=== PATIENT | female | born 1995 | race Caucasian/White ===

== ENCOUNTER → 2017-08-15 | Outpatient (CLI) | payer OTHER ==
[2017-08-15 17:07] LABS: Hepatitis A Ab IgM Negative; Hepatitis B Core IgM Negative
[2017-08-15 17:08] LABS: Hepatitis B Surface Antigen Negative (Negative)
== END | disposition home or self-care (01) ==
LOC: LAB 14:20
PROVIDERS: ATTEND Obstetrics & Gynecology
DX: Z20.2 Contact with and (suspected) exposure to infections with a predominantly sexual mode of transmission (principal)
CPT/HCPCS: 36415; 80074; 86703

== ENCOUNTER 2019-12-01 11:20 | Observation (INO) | payer OTHER ==
[2019-12-01] MEDS ORDERED: PREN-96 PO (11:37)
[2019-12-01 12:13] LABS: Basophils # (auto) 0 10 ^3/uL (0-0.2); Basophils % (auto) 0.3 % (0.0-2.0); Eosinophils # (auto) 0.5 10 ^3/uL (0-0.8); Eosinophils % (auto) 5.5 % (0.0-7.0); Hematocrit 32.8 % (36.0-46.0); Lymphocytes # (auto) 1.6 10 ^3/uL (0.4-5.4); Lymphocytes % (auto) 17.3 % (10.0-50.0); Mean Corpuscular Hemoglobin 32.4 pg (28.0-32.0); Mean Corpuscular Hgb Conc. 33.4 g/dL (32.0-36.0); Monocytes # (auto) 0.9 10 ^3/uL (0-1.3); Monocytes % (auto) 9.3 % (0.0-12.0); Neutrophils # (auto) 6.3 10 ^3/uL (1.6-8.6); Neutrophils % (auto) 67.6 % (37.0-80.0); Platelet Count (auto) 265 10^3/uL (140-450); Red Blood Cells 3.38 10^6/uL (4.0-5.20); Red Cell Distribution Width 12.8 % (11.8-14.3); White Blood Cell 9.3 10^3/uL (4.4-10.8)
[2019-12-01 12:16] LABS: Protein, Urine 68.4 mg/dL (0.0-11.9)
[2019-12-01 12:17] LABS: Urine Bacteria NONE SEEN /hpf (None Seen); Urine Blood Negative /uL (Negative); Urine Mucus FEW (None Seen); Urine Specific Gravity 1.018 (1.001-1.035); Urine Sperm PRESENT /hpf (None Seen); Urine WBC 10 /hpf (0 - 5)
[2019-12-01 12:31] LABS: INR 0.93 (0.9-1.15); Partial Thromboplastin Time 20.8 sec (23.0-31.2)
[2019-12-01 12:32] LABS: Albumin 2.6 g/dL (3.4-5.0); Calcium 8.4 mg/dL (8.5-10.1); Potassium 3.7 mmol/L (3.5-5.1)
[2019-12-01 12:41] LABS: BUN/Creatinine Ratio 12.2; Bilirubin, Total 0.2 mg/dL (0.2-1.0); Total Protein 7.1 g/dL (6.4-8.2); Uric Acid 3.9 mg/dL (2.6-6.0)
== END 2019-12-01 13:00 | disposition home or self-care (01) ==
LOC: LDRP 11:20
PROVIDERS: ADMIT Obstetrics & Gynecology; ATTEND Obstetrics & Gynecology
DX: O13.3 Gestational [pregnancy-induced] hypertension without significant proteinuria, third trimester (principal); Z3A.37 37 weeks gestation of pregnancy
CPT/HCPCS: 36415; 59025; 80053; 81001; 81002; 82570; 84156; 84550; 85025; 85610; 85730; G0378

== ENCOUNTER 2019-12-03 10:11 | Observation (INO) | payer OTHER ==
[~2019-12-03 10:11] MED LIST: PREN-96 PO
[2019-12-03 21:01] LABS: Protein, Urine 5.4 mg/dL (0.0-11.9)
[2019-12-03 21:12] LABS: 24 Hr. Total Protein, Urine 116.1 mg/24 Hr (<149.1)
== END 2019-12-03 12:10 | disposition home or self-care (01) ==
LOC: LDRP 10:11
PROVIDERS: ADMIT Specialist; ATTEND Specialist
DX: O13.3 Gestational [pregnancy-induced] hypertension without significant proteinuria, third trimester (principal)
CPT/HCPCS: 59025; 76818; 81002; 84156; G0378

== ENCOUNTER 2019-12-07 09:39 | Observation (INO) | payer OTHER | END 2019-12-07 10:45 | disposition home or self-care (01) | LOC: LDRP 09:39 | PROVIDERS: ADMIT Obstetrics & Gynecology; ATTEND Obstetrics & Gynecology | DX: O12.13 Gestational proteinuria, third trimester (principal); Z3A.38 38 weeks gestation of pregnancy | CPT/HCPCS: 59025; 76818; 81002; G0378 ==

== ENCOUNTER 2019-12-14 09:11 | Observation (INO) | payer OTHER | END 2019-12-14 10:35 | disposition home or self-care (01) | LOC: LDRP 09:11 | PROVIDERS: ADMIT Obstetrics & Gynecology; ATTEND Obstetrics & Gynecology | DX: O13.3 Gestational [pregnancy-induced] hypertension without significant proteinuria, third trimester (principal); Z3A.39 39 weeks gestation of pregnancy | CPT/HCPCS: 59025; 76818; 81002; G0378 ==

== ENCOUNTER 2019-12-20 14:02 | Observation (INO) | payer OTHER ==
[2019-12-20 15:15] LABS: Basophils # (auto) 0 10 ^3/uL (0-0.2); Basophils % (auto) 0.5 % (0.0-2.0); Eosinophils # (auto) 0.4 10 ^3/uL (0-0.8); Eosinophils % (auto) 4.3 % (0.0-7.0); Hematocrit 32.1 % (36.0-46.0); Hemoglobin 10.9 g/dL (12.2-16.2); Lymphocytes # (auto) 1.9 10 ^3/uL (0.4-5.4); Lymphocytes % (auto) 21.3 % (10.0-50.0); Mean Corpuscular Hemoglobin 32.2 pg (28.0-32.0); Mean Corpuscular Hgb Conc. 33.8 g/dL (32.0-36.0); Mean Corpuscular Volume 95.3 fL (80.0-100.0); Monocytes # (auto) 0.8 10 ^3/uL (0-1.3); Monocytes % (auto) 9.4 % (0.0-12.0); Neutrophils # (auto) 5.6 10 ^3/uL (1.6-8.6); Neutrophils % (auto) 64.5 % (37.0-80.0); Nucleated Red Blood Cells % 0.1 %; Platelet Count (auto) 253 10^3/uL (140-450); Red Blood Cells 3.37 10^6/uL (4.0-5.20); White Blood Cell 8.7 10^3/uL (4.4-10.8)
[2019-12-20 15:30] LABS: Albumin 2.9 g/dL (3.4-5.0); Calcium 8.4 mg/dL (8.5-10.1); Potassium 3.7 mmol/L (3.5-5.1)
[2019-12-20 15:32] LABS: INR 0.92 (0.9-1.15); Partial Thromboplastin Time 21.9 sec (23.0-31.2)
[2019-12-20 15:35] LABS: BUN/Creatinine Ratio 16.3; Bilirubin, Total 0.2 mg/dL (0.2-1.0); Total Protein 7.1 g/dL (6.4-8.2); Uric Acid 3.4 mg/dL (2.6-6.0)
[2019-12-20 16:09] LABS: Urine Bacteria FEW /hpf (None Seen); Urine Blood Negative /uL (Negative); Urine Specific Gravity 1.009 (1.001-1.035); Urine WBC 22 /hpf (0 - 5)
== END 2019-12-20 16:00 | disposition home or self-care (01) ==
LOC: LDRP 14:02
PROVIDERS: ADMIT Obstetrics & Gynecology; ATTEND Obstetrics & Gynecology
DX: O13.3 Gestational [pregnancy-induced] hypertension without significant proteinuria, third trimester (principal); O14.93 Unspecified pre-eclampsia, third trimester; Z3A.39 39 weeks gestation of pregnancy
CPT/HCPCS: 36415; 59025; 76818; 80053; 81001; 81002; 84550; 85025; 85379; 85610; 85730; G0378

== ENCOUNTER 2019-12-22 08:15 | Observation (INO) | payer OTHER ==
[2019-12-22 09:00] LABS: Protein, Urine 47.7 mg/dL (0.0-11.9)
[2019-12-22 10:06] LABS: 24 Hr. Total Protein, Urine 715.5 mg/24 Hr (<149.1)
== END 2019-12-22 10:50 | disposition home or self-care (01) ==
LOC: LDRP 08:15
PROVIDERS: ADMIT Obstetrics & Gynecology; ATTEND Obstetrics & Gynecology
DX: O13.3 Gestational [pregnancy-induced] hypertension without significant proteinuria, third trimester (principal); O14.93 Unspecified pre-eclampsia, third trimester; O48.0 Post-term pregnancy; Z3A.40 40 weeks gestation of pregnancy
CPT/HCPCS: 59025; 76818; 81002; 84156; G0378

== ENCOUNTER 2019-12-22 13:55 | Inpatient (IN) | payer OTHER ==
[~2019-12-22] VITALS: Ht 160 cm; Wt 63.5 kg
[2019-12-22] MEDS ORDERED: LIDOCAINE 2%HCL (LOCAL ANESTH.) INJ 20ML MDV ID ONE (14:45)
[2019-12-22] MEDS ORDERED: WITCH HAZEL-GLYCERIN PAD TOP PRN (14:45)
[2019-12-22] MEDS ORDERED: LACT. RINGERS/OXYTOCIN 20UNITS 1,000 ML IV SCH (14:45)
[2019-12-22] MEDS ORDERED: PHISODERM TOP SOLN 240ML BTL TOP PRN (14:45)
[2019-12-22 15:27] LABS: Basophils # (auto) 0 10 ^3/uL (0-0.2); Basophils % (auto) 0.3 % (0.0-2.0); Eosinophils # (auto) 0.4 10 ^3/uL (0-0.8); Eosinophils % (auto) 3.7 % (0.0-7.0); Hematocrit 31.6 % (36.0-46.0); Hemoglobin 10.7 g/dL (12.2-16.2); Lymphocytes # (auto) 1.8 10 ^3/uL (0.4-5.4); Lymphocytes % (auto) 17.9 % (10.0-50.0); Mean Corpuscular Hemoglobin 32.4 pg (28.0-32.0); Mean Corpuscular Volume 95.1 fL (80.0-100.0); Monocytes # (auto) 0.9 10 ^3/uL (0-1.3); Monocytes % (auto) 8.6 % (0.0-12.0); Neutrophils % (auto) 69.5 % (37.0-80.0); Nucleated Red Blood Cells % 0.1 %; Platelet Count (auto) 246 10^3/uL (140-450); Red Blood Cells 3.32 10^6/uL (4.0-5.20); Red Cell Distribution Width 12.9 % (11.8-14.3); White Blood Cell 10.1 10^3/uL (4.4-10.8)
[2019-12-22] MEDS: miSOPROStol 50 MCG per PRE-CUT 1/2 TAB PO PRN ×2 (15:32→19:50)
[2019-12-22 15:34] LABS: Urine Bacteria NONE SEEN /hpf (None Seen); Urine Blood TRACE /uL (Negative); Urine Specific Gravity 1.013 (1.001-1.035); Urine WBC 11 /hpf (0 - 5)
[2019-12-22 15:46] LABS: Alcohol, Urine < 3.0 mg/dL (0-10); Amphetamine Screen, Urine NEGATIVE (NEGATIVE); Barbiturate Scree,Urine NEGATIVE (NEGATIVE); Benzodiazephine Screen, Urine NEGATIVE (NEGATIVE); Cannabinoid Screen, Urine NEGATIVE (NEGATIVE); Cocaine Screen, Urine NEGATIVE (NEGATIVE); Opiate Scree,Urine NEGATIVE (NEGATIVE); Phencyclidine Screen, Urine NEGATIVE (NEGATIVE)
[2019-12-22 15:47] LABS: Potassium 3.6 mmol/L (3.5-5.1)
[2019-12-22 15:52] LABS: INR 0.91 (0.9-1.15); Partial Thromboplastin Time 21.5 sec (23.0-31.2)
[2019-12-22 15:54] LABS: Albumin 2.9 g/dL (3.4-5.0); BUN/Creatinine Ratio 11.1; Bilirubin, Total 0.2 mg/dL (0.2-1.0); Calcium 8.6 mg/dL (8.5-10.1); Uric Acid 4.7 mg/dL (2.6-6.0)
[2019-12-23] MEDS: LACTATED RINGER'S 1,000 ML IV SCH ×2 (00:07→10:36)
[2019-12-23] MEDS ORDERED: TERBUTALINE SULFATE 1 MG/ML 1ML VIAL SC ONE (00:15)
[2019-12-23] MEDS ORDERED: LACT. RINGERS/OXYTOCIN 20UNITS 1,000 ML IV ONE ×2 (00:15→15:00)
[2019-12-23] MEDS ORDERED: BUTORPHANOL TARTRATE 2 MG/1 ML VIAL IV PRN (00:30)
[2019-12-23] MEDS ORDERED: DERMOPLAST 60ML BOTTLE TOP PRN (00:30)
[2019-12-23] MEDS ORDERED: PROMETHAZINE HCL 25 MG/ML 1ML IV PRN (00:30)
[2019-12-23] MEDS ORDERED: fentaNYL CITRATE 100 MCG/2 ML VL IV ONE (04:15)
[2019-12-23] MEDS ORDERED: NALOXONE HCL 0.4 MG/ML VIAL IV ONE (04:15)
[2019-12-23] MEDS ORDERED: ROPIVACAINE HCL 100 ML EPI SCH ×2 (04:15→06:30)
[2019-12-23] MEDS ORDERED: LACTATED RINGER'S 1,000 ML IV ONE (04:15)
[2019-12-23] MEDS ORDERED: LIDOCAINE HCL 2 %PF INJ 10ML AMP IJ ONE (04:15)
[2019-12-23] MEDS ORDERED: ePHEDrine SULFATE 50 MG/ML AMP IV ONE (04:15)
[2019-12-23 05:07] LABS: RPR Non Reactive (Non Reactive)
[2019-12-23] MEDS ORDERED: ACETAMINOPHEN 325 MG TAB PO ONE (10:30)
[2019-12-23] MEDS: ceFAZolin 1GM/50ML 50 ML IV SCH ×2 (10:33→22:27)
--- NOTE | 2019-12-23 13:55 | NUR ---
Ambulation: Patient OOB with standby assistance by RN. Patient ambulated to bathroom with steady gait. Patient able to void 800ml without difficulty. Pericare teaching provided with returned demonstration by patient. Clean gown provided and bed linen changed. Patient felt lightheaded and dizzy, pt eased to floor after standing. Patient then assisted to wheelchair and into bed, LR bolus started, VSS.
[2019-12-23] MEDS ORDERED: AMMONIA 0.33 ML INHALANT IN ONE (13:56)
[2019-12-23 14:12] VITALS: BP 121/69
[2019-12-23] MEDS: IBUPROFEN 600 MG TAB PO PRN ×2 (15:20→18:41)
[2019-12-23] MEDS ORDERED: LACT. RINGERS/OXYTOCIN 20UNITS 1,000 ML IV SCH (16:00)
--- NOTE | 2019-12-23 16:00 | NUR ---
JERILYNAR received from TIM Rivera.
[2019-12-23 19:00] VITALS: BP 110/57
[2019-12-23] MEDS: ACETAMINOPHEN 325 MG TAB PO PRN (22:26)
[2019-12-23 23:00] VITALS: BP 117/69
[2019-12-24 02:56] VITALS: BP 105/57
[2019-12-24] MEDS: ceFAZolin 1GM/50ML 50 ML IV SCH (05:39)
--- NOTE | 2019-12-24 06:15 | NUR ---
Report received from Eliseo Sanchez on stable pt. Assumed care. Addendum: 12/24/19 at 0621 by Ila Xie RN Amended: Links added.
[2019-12-24 06:39] VITALS: BP 100/58
[2019-12-24 11:00] VITALS: BP 114/69
[2019-12-24] MEDS: ACETAMINOPHEN 325 MG TAB PO PRN (11:51)
[2019-12-24 15:54] VITALS: BP 114/67
--- NOTE | 2019-12-24 16:13 | NUR ---
IV removal 20G IV DC'd with clean sterile technique, catheter fully intact. Pressure dressing applied to site. Patient tolerated well. Addendum: 12/24/19 at 1614 by Ila Xie RN Amended: Links added.
--- NOTE | 2019-12-24 16:59 | NUR ---
Report given to Star SALMERON RN on stable pt. Relinquished care.
[2019-12-24 18:30] VITALS: BP_SYST 106; BP_SYST 107; BP_DIAS 60; BP_DIAS 65
--- NOTE | 2019-12-24 19:00 | NUR ---
Discharge: Discharge instructions given to mother of baby as ordered. Copies of and hearing screening, along with vaccination record given to mother. Mother encouraged to follow up with Data Coder Operator of choice and to give envelope with infants information to car repairer helper at 1st office visit. All questions and concerns addressed. Mother of baby verbalized understanding and agreed to comply. Mother of baby encouraged to prepare for departure and notify RN ready to leave room for ID band removal/verification and car seat check.
--- NOTE | 2019-12-24 19:00 | NUR ---
Discharge: Discharge instructions given as ordered. Pt encouraged to follow up with BREAK OFF WORKER as instructed. All questions and concerns addressed. Patient verbalized understanding. Medication reconciliation completed and copy given to patient. All required/requested vaccines given and copies of vaccinations given to patient. Patient encouraged to prepare to depart unit.
--- NOTE | 2019-12-24 19:15 | NUR ---
Discharge: Patient taken to vehicle via steady ambulation with all personal belongings, accompanied by staff and family member. No distress noted at time of departure, no adverse changes in status since initial assessment.
== END 2019-12-24 19:15 | disposition home or self-care (01) | DRG 560 ==
LOC: LDRP 13:55
PROVIDERS: ADMIT Obstetrics & Gynecology; ATTEND Obstetrics & Gynecology
PROC: 10D07Z6 Extraction of Products of Conception, Vacuum, Via Natural or Artificial Opening (ICD-10-PCS; principal; 2019-12-23)
PROC: 0KQM0ZZ Repair Perineum Muscle, Open Approach (ICD-10-PCS; 2019-12-23)
PROC: 0W8NXZZ Division of Female Perineum, External Approach (ICD-10-PCS; 2019-12-23)
PROC: 3E0R3BZ Introduction of Anesthetic Agent into Spinal Canal, Percutaneous Approach (ICD-10-PCS; 2019-12-23)
PROC: 00HU33Z Insertion of Infusion Device into Spinal Canal, Percutaneous Approach (ICD-10-PCS; 2019-12-23)
PROC: 10907ZC Drainage of Amniotic Fluid, Therapeutic from Products of Conception, Via Natural or Artificial Opening (ICD-10-PCS; 2019-12-23)
DX: O48.0 Post-term pregnancy (principal); O69.81X0 Labor and delivery complicated by cord around neck, without compression, not applicable or unspecified; O70.1 Second degree perineal laceration during delivery; O13.4 Gestational [pregnancy-induced] hypertension without significant proteinuria, complicating childbirth; B19.20 Unspecified viral hepatitis C without hepatic coma; O98.42 Viral hepatitis complicating childbirth; Z3A.40 40 weeks gestation of pregnancy; Z37.0 Single live birth; Z20.828 Contact with and (suspected) exposure to other viral communicable diseases
CPT/HCPCS: 36415; 59025; 59409; 62282; 80053; 80307; 81001; 84112; 84550; 85025; 85610; 85730; 86592; 86850; 86900; 86901; 87426; 96360; 96361; 96365; 96366; 96374; 96375; G0378; J0690; J2590

== ENCOUNTER 2023-09-09 11:26 | Emergency (ER) | payer OTHER ==
[~2023-09-09] VITALS: Ht 167.6 cm; Wt 61.4 kg
[2023-09-09 11:27] VITALS: BP 122/67; PULSE 84; RESP 18; O2SAT 99
[2023-09-09 12:43] LABS: Urine Bacteria FEW /hpf (None Seen); Urine Blood 2+ /uL (Negative); Urine Clarity Clear (Clear); Urine Color Light-Yellow (Yellow); Urine Protein, UAD Negative (Negative); Urine Specific Gravity 1.004 (1.001-1.035); Urine Urobilinogen Normal (Negative); Urine WBC 1 /hpf (0 - 5); Urine pH 6.5 (5.0-9.0)
== END 2023-09-09 13:54 | disposition left against medical advice (07) ==
LOC: ER 11:26
DX: O20.9 Hemorrhage in early pregnancy, unspecified (principal); R10.2 Pelvic and perineal pain; Z3A.08 8 weeks gestation of pregnancy; Z53.21 Procedure and treatment not carried out due to patient leaving prior to being seen by health care provider
CPT/HCPCS: 36415; 81001; 84702

== ENCOUNTER 2023-09-11 09:18 | Emergency (ER) | payer OTHER ==
[~2023-09-11] VITALS: Ht 167.6 cm; Wt 57.7 kg
[2023-09-11 10:43] LABS: Basophils # (auto) 0 10 ^3/uL (0-0.2); Basophils % (auto) 0.4 % (0.0-2.0); Eosinophils # (auto) 0.5 10 ^3/uL (0-0.8); Eosinophils % (auto) 6.9 % (0.0-7.0); Hematocrit 44.4 % (36.0-46.0); Hemoglobin 15.4 g/dL (12.2-16.2); Lymphocytes # (auto) 1.8 10 ^3/uL (0.4-5.4); Mean Corpuscular Hemoglobin 33.2 pg (28.0-32.0); Mean Corpuscular Hgb Conc. 34.6 g/dL (32.0-36.0); Mean Corpuscular Volume 95.9 fL (80.0-100.0); Monocytes # (auto) 0.6 10 ^3/uL (0-1.3); Monocytes % (auto) 7.5 % (0.0-12.0); Neutrophils # (auto) 4.7 10 ^3/uL (1.6-8.6); Neutrophils % (auto) 61.2 % (37.0-80.0); Red Blood Cells 4.63 10^6/uL (4.0-5.20); Red Cell Distribution Width 12.7 % (11.8-14.3); White Blood Cell 7.6 10^3/uL (4.4-10.8)
[2023-09-11 11:23] LABS: Urine Bacteria FEW /hpf (None Seen); Urine Blood 1+ /uL (Negative); Urine Clarity Clear (Clear); Urine Color Colorless (Yellow); Urine Protein, UAD Negative (Negative); Urine Specific Gravity 1.001 (1.001-1.035); Urine Urobilinogen Normal (Negative); Urine WBC <1 /hpf (0 - 5)
[2023-09-11 12:09] LABS: Chloride 102 mmol/L (98-107); Potassium 3.7 mmol/L (3.5-5.1); Sodium 136 mmol/L (136-145)
[2023-09-11 12:10] LABS: Anion Gap 11 (5-15); Calcium 10.2 mg/dL (8.5-10.1); Carbon Dioxide 23 mmol/L (20-30)
[2023-09-11 12:15] LABS: BUN/Creatinine Ratio 11.1 (10.0-20.0); Blood Urea Nitrogen 6 mg/dL (9-23); Glucose 83 mg/dL (74-106)
[2023-09-11 12:29] VITALS: BP 119/67; PULSE 91; RESP 16; TEMP 97.7; O2SAT 100
== END 2023-09-11 12:42 | disposition home or self-care (01) ==
LOC: ER 09:23
DX: O20.9 Hemorrhage in early pregnancy, unspecified (principal); R10.2 Pelvic and perineal pain; Z3A.08 8 weeks gestation of pregnancy
CPT/HCPCS: 36415; 76801; 76817; 80048; 81001; 84702; 85025

== ENCOUNTER 2024-03-03 11:54 | Observation (INO) | payer MEDICAID, OTHER ==
--- NOTE | 2024-03-03 12:40 | DVH ---
BIOPHYSICAL PROFILE HISTORY: AP+ ECHOGENIC BOWEL Comparison Study: None TECHNIQUE: Multiple real-time grayscale sonographic images through the gravid uterus of the fetus wi th duplex Doppler color flow and M-mode spectral analysis FINDINGS: BIOPHYSICAL PROFILE: breathing score: 2 movement score: 2 tone score: 2 Quantitative CONNOR score: 2 (CONNOR: 12.9 Cm.) Total score: 8 The cervix is not visualized Single live fetus in cephalic presentation. heart rate 159 beats per minute. Anterior placenta without previa or abruption IMPRESSION: Biophysical profile score: 8
--- NOTE | 2024-03-03 20:20 | DVHDS2 ---
Physician Discharge Progress N Final Diagnosis: testing for +AFP/echogenic bowel Operations or Procedures: Operations or Procedures 28yo IUP@33.4wks, +FM, denies UCs/LOF/VB/BORWN/vision changes/RUQ pain. VSS UA wnl NST reactive (verified 2 RNs) BPP wnl kick counts and Preeclampsia warning signs reviewed. PTL precautions given and when to return to the hospital. Condition on Discharge: Stable Disposition: Home Discharge Instructions: Diet: Regular Activity: No Restrictions, As Tolerated Medications: see med list Follow Up Care: Specialist: f/u twice weekly Discharge Statement: "Patient was advised to return to the ER or call 911 if any headaches, dizziness, shortness of breath, chest pain, abdominal pain, bleeding, fevers, or worsening of medical condition. Patient was counseled about treatment plan, medications, possible side effects, patientverbalized understanding. All questions were answered to the best of my ability. This discharge took greater then 30 minutes in planning, reviewing documentation, counseling the patient, and discussing with other team members." ANGELINE KAUR CNM Mar 03, 2024 20:20
== END 2024-03-03 14:07 | disposition home or self-care (01) ==
LOC: UNDOADMOB 11:54 → LDRP 11:54
PROVIDERS: ADMIT Obstetrics & Gynecology; ATTEND Obstetrics & Gynecology
DX: O26.893 Other specified pregnancy related conditions, third trimester (principal); Z98.890 Other specified postprocedural states; Z79.899 Other long term (current) drug therapy; Z3A.33 33 weeks gestation of pregnancy
CPT/HCPCS: 59025; 76818; 81002; 94760; G0378

== ENCOUNTER 2024-03-09 08:50 | Observation (INO) | payer MEDICAID ==
[~2024-03-09] VITALS: Ht 167.6 cm; Wt 64.4 kg
--- NOTE | 2024-03-09 10:46 | DVHDS2 ---
Physician Discharge Progress N Final Diagnosis: AFP+ Echogenic bowel Secondary Diagnosis: Encounter for surveillance Operations or Procedures: Operations or Procedures NST/BPP/CONNOR all WNL Condition on Discharge: Stable Disposition: Home Discharge Instructions: Diet: Regular Activity: Light activity Follow Up/Referral: as scheduled Medications: N/A Follow Up Care: Discharge Statement: "Patient was advised to return to the ER or call 911 if any headaches, dizziness , shortness of breath, chest pain, abdominal pain, bleeding, fevers, or worsening of medical condition. Patient was counseled about treatment plan, medications, possible side effects, patientverbalized understanding. All questions were answered to the best of my ability. This discharge took greater then 30 minutes in planning, reviewing documentation, counseling the patient, and discussing with other team members." PHU BROOKS DO Mar 09, 2024 10:46
--- NOTE | 2024-03-09 11:08 | DVH ---
BIOPHYSICAL PROFILE HISTORY: positive AFP and echogenic bowel TECHNIQUE: Multiple transabdominal real-time grayscale sonographic images through the gravid uterus of the fetus with duplex Doppler color flow and M-mode spectral analysis FINDINGS: BIOPHYSICAL PROFILE: breathing score: 2 movement score: 2 tone score: 2 Quantitative CONNOR score: 2 (CONNOR: 10 Cm.) Total score: 8 The cervix was not seen Single live fetus in cephalic presentation. heart rate 152 beats per minute. IMPRESSION: Biophysical profile score: 8/8
== END 2024-03-09 11:01 | disposition home or self-care (01) ==
LOC: LDRP 08:50 → UNDOADMOB 08:50 → LDRP 09:22 → UNDODISOB 11:01
PROVIDERS: ADMIT Obstetrics & Gynecology; ATTEND Obstetrics & Gynecology
DX: O42.913 Preterm premature rupture of membranes, unspecified as to length of time between rupture and onset of labor, third trimester (principal); Z3A.34 34 weeks gestation of pregnancy; Z79.899 Other long term (current) drug therapy; Z98.890 Other specified postprocedural states
CPT/HCPCS: 59025; 76818; 81002; 94760; G0378

== ENCOUNTER 2024-04-06 10:03 | Inpatient (IN) | payer MEDICAID ==
[~2024-04-06] VITALS: Ht 167 cm; Wt 72.6 kg
[2024-04-06] MEDS ORDERED: LACT. RINGERS/OXYTOCIN 20UNITS 500 ML IV ONE ×2 (10:45→11:15)
[2024-04-06] MEDS ORDERED: BUTORPHANOL TARTRATE 2 MG/1 ML VIAL IV PRN ×2 (10:45)
[2024-04-06] MEDS ORDERED: LIDOCAINE 2%HCL (LOCAL ANESTH.) INJ 20ML MDV IJ PRN (10:45)
--- NOTE | 2024-04-06 10:58 | DVHHP2 ---
OB CC & HPI Date Date of Admission: Apr 06, 2024 Patient Identification: : 2 Para: 1 EDC: Apr 17, 2024 EGA: 38.3 Chief Complaints: Reason for admission: active labor History of Present Complaints 28-year-old female G 2. P 1. EDC of 04/17/2024 EGA 38.3 wk. Presented with complaints of acute labor pains and regular contractions denies vaginal bleeding or loss of fluid Patient has had regular care since the 1st trimester her is complicated with vanishing twin in the 1st trimester AFP positive screen, declined amniocentesis. NIPT negative. Genetic ultrasound revealed echogenic bowel. GBS neg Past Medical History Cardiac: No pertinent Hx Pulmonary: No pertinent Hx Central Nervous System: No pertinent Hx GI: No pertinent Hx Hemotology/Oncology: No pertinent Hx Hepatobiliary: No pertinent Hx Psychiatric: No pertinent Hx Musculoskeletal: No pertinent Hx Rheumotologic: No pertinent Hx Infectious Disease: No peritnent Hx ENT: No pertinent Hx Renal/: No pertinent Hx Endocrine: No pertinent Hx Dermatology: No pertinent Hx Past Surgical History: No pertinent Hx OB History OB History Care: Good Care Ultrasounds: Abnormal US findings (Echogenic bowel) Obstetrical Complications: Other (AFP+ screen) Medical Complications: None Allergies: Coded Allergies: NO KNOWN ALLERGIES (Unverified , 03/09/24) Home Meds Reported Medications Vit W/ Ferrous Fumara ( One Daily) Daily Tab, 1 TAB PO DAILY, #90 TAB 3 Refills 12/01/19 Current Medications Current Medications Medications (Trade) Dose Ordered Sig/Steven Route PRN Reason Start Time Stop Time Status Last Admin Lactated Ringer's 1,000 ml @ 125 mls/hr Q8H IV 04/06/24 10:45 UNV Witch Vania (Tucks) 1 pad PRN PRN TOP PERINEAL AREA DISCOMFORT 04/06/24 10:45 UNV Sodium Lauryl Sulfate (Phisoderm) 240 ml PRN PRN TOP PERINEAL AREA DISCOMFORT 04/06/24 10:45 UNV Benzocaine (Dermoplast) 1 applic PRN PRN TOP PERINEAL AREA DISCOMFORT 04/06/24 10:45 UNV Butorphanol Tartrate (Stadol Injection) 1 mg Q4HPRN PRN IV MODERATE PAIN (4-6 PAIN SCALE) 04/06/24 10:45 UNV Butorphanol Tartrate (Stadol Injection) 2 mg Q4HPRN PRN IV SEVERE PAIN (7-10 PAIN SCALE) 04/06/24 10:45 UNV Lidocaine HCl (Xylocaine) 20 ml ONCE PRN IJ PERINEAL AREA DISCOMFORT 04/06/24 10:45 UNV Oxytocin 1,000 ml @ 6 ml/hr Q24H IV 04/06/24 10:45 UNV Family & Social History Family/Social History Blood Type: B+ Rubella: immune RPR/VDRL: Negative GBS Status: Negative HBsAG: Negative Review of Systems Constitutional: No symptom reported Ears, Nose, & Throat: No symptom reported Eyes: No symptom reported Pulmonary/Respiratory: No symptom reported Cardiovascular: No symptom reported Gastrointestinal: No symptom reported Genitourinary: No symptom reported Musculoskeletal: No symptom reported Skin: No symptom reported Psychiatric: No symptom reported Endocrine: No symptom reported Hemotologic/Lymphatic: No symptom reported OB Admission Exam Physical Exam HEENT: NCAT Heart: Rhythm Normal Lungs: Clear Abdomen: Gravid Extremities: Normal Reflexes: Normal Pelvic Exam: RN exam 4/70%/-2 VTX Heart Rate: 130's Accelerations: Accelerations Present Decelerations: No Decelerations Short Term Variability: Present Residential Variability: Average (6-25) Contractions on Admission: 6-10 Minutes Apart Intensity: Mild OB Plan Plan Admitting Diagnosis: Early Term IUP 38.4 wk, Active labor GBS neg Categ 1 FHR pattern AFP+ / Echogenic bowel + screen Plan: Expectant Management Other Plan: Admit for labor and delivery management. Pain control with epidural versus IV analgesics discussed with patient. Indications for operative vaginal delivery, and or discussed. We will augment with Pitocin as necessary. Anticipate normal vaginal delivery. PHU BROOKS DO Apr 06, 2024 10:58
[2024-04-06] MEDS ORDERED: LIDOCAINE 1%-Mpf/Epinephrine 1:200,000 30ml VIAL IJ ONE (11:15)
[2024-04-06] MEDS ORDERED: NALOXONE HCL 0.4 MG/ML VIAL IV ONE (11:15)
[2024-04-06] MEDS ORDERED: LACTATED RINGER'S 1,000 ML IV ONE (11:15)
[2024-04-06] MEDS ORDERED: LIDOCAINE HCL 2 %PF INJ 10ML AMP IJ ONE (11:15)
[2024-04-06 11:26] LABS: Basophils # (auto) 0.1 10 ^3/uL (0-0.2); Basophils % (auto) 0.5 % (0.0-2.0); Eosinophils # (auto) 0.6 10 ^3/uL (0-0.8); Hematocrit 31.3 % (36.0-46.0); Hemoglobin 10.8 g/dL (12.2-16.2); Lymphocytes # (auto) 1.9 10 ^3/uL (0.4-5.4); Lymphocytes % (auto) 19.3 % (10.0-50.0); Mean Corpuscular Hemoglobin 31.2 pg (28.0-32.0); Mean Corpuscular Hgb Conc. 34.5 g/dL (32.0-36.0); Mean Corpuscular Volume 90.5 fL (80.0-100.0); Monocytes # (auto) 0.8 10 ^3/uL (0-1.3); Monocytes % (auto) 8.3 % (0.0-12.0); Neutrophils # (auto) 6.6 10 ^3/uL (1.6-8.6); Neutrophils % (auto) 65.9 % (37.0-80.0); Platelet Count (auto) 281 10^3/uL (140-450); Red Blood Cells 3.46 10^6/uL (4.0-5.20); Red Cell Distribution Width 13.4 % (11.8-14.3)
[2024-04-06 11:33] LABS: Urine Bacteria None Seen /hpf (None Seen)
[2024-04-06] MEDS: LACTATED RINGER'S 1,000 ML IV SCH (11:38)
[2024-04-06] MEDS: WITCH HAZEL-GLYCERIN PAD TOP PRN (11:47)
[2024-04-06] MEDS: PHISODERM TOP SOLN 240ML BTL TOP PRN (11:47)
[2024-04-06] MEDS: DERMOPLAST 60ML BOTTLE TOP PRN (11:47)
[2024-04-06] MEDS ORDERED: ROPIVACAINE HCL 200 ML ONE (11:47)
[2024-04-06 11:48] LABS: Alanine Aminotransferase 11 U/L (7-40); Albumin 4.3 g/dL (3.2-4.8); Anion Gap 9 (5-15); Aspartate Aminotransferase 23 U/L (13-40); BUN/Creatinine Ratio 10.2 (10.0-20.0); Calcium 9.4 mg/dL (8.7-10.4); Glucose 75 mg/dL (74-106); Sodium 138 mmol/L (136-145)
[2024-04-06 11:49] LABS: Bilirubin, Total 0.5 mg/dL (0.2-1.0); Total Protein 6.7 g/dL (5.7-8.2)
[2024-04-06 11:56] LABS: INR 0.93 (0.9-1.15); Partial Thromboplastin Time 23.8 SEC (24.5-34.5); Prothrombin Time 9.9 sec (9.3-11.8)
[2024-04-06 12:00] LABS: Urine Blood Negative /uL (Negative); Urine Clarity Clear (Clear); Urine Color Light-Yellow (Yellow); Urine Protein, UAD Negative (Negative); Urine Specific Gravity 1.009 (1.001-1.035); Urine Squamous Epithelial Cell FEW /hpf (<5); Urine Urobilinogen Normal (Negative); Urine WBC <1 /hpf (0 - 5)
[2024-04-06 12:17] LABS: Alkaline Phosphatase 251 U/L (46-116); Blood Urea Nitrogen 5 mg/dL (9-23); Carbon Dioxide 20 mmol/L (20-31); Chloride 109 mmol/L (98-107); Potassium 3.4 mmol/L (3.5-5.1)
[2024-04-06 12:21] LABS: Amphetamine Screen, Urine Neg (NEGATIVE); Barbiturate Scree,Urine Neg (NEGATIVE); Benzodiazephine Screen, Urine Neg (NEGATIVE); Cannabinoid Screen, Urine Neg (NEGATIVE); Cocaine Screen, Urine Neg (NEGATIVE); Opiate Scree,Urine Neg (NEGATIVE); Phencyclidine Screen, Urine Neg (NEGATIVE)
[2024-04-06] MEDS: fentaNYL CITRATE 100 MCG/2 ML VL IV ONE (12:54)
[2024-04-06] MEDS: ePHEDrine SULFATE 50 MG/ML AMP IV ONE (13:07)
[2024-04-06] MEDS: LACT. RINGERS/OXYTOCIN 20UNITS 1,000 ML IV SCH (17:14)
[2024-04-06] MEDS: ACETAMINOPHEN 500 MG TAB or CAP PO ONE (18:22)
--- NOTE | 2024-04-06 19:55 | LDN2 ---
Labor and Delivery Note Date 04/06/24 Age 28 2 Para 2 EGA Term Diagnosis Term in labor s/p Meconium fluid AFP+ Vaginal Delivery: VTX Vacuum Assisted: No Placenta: Spontaneous Sex: Female Weight Pending Apgars 8/9 Amniotic Fluid: Meconium Stained, Thick Anesthesia Epidural Episiotomy: No EBL 200 mL Labs Laboratory Tests 08/15/17 14:33: Hepatitis B Surface Antigen Negative Blood Bank 04/06/24 11:00: Blood Type B POSITIVE Complications None Comments/Significant Med Pranav uncomplicated Thick meconium but baby vigorous at , no respiratory issues noted Respiratory team present at delivery. PHU BOROKS DO Apr 06, 2024 19:55
[2024-04-06] MEDS ORDERED: ONDANSETRON ODT 4 MG TAB PO PRN (22:30)
[2024-04-06] MEDS ORDERED: ACETAMINOPHEN 325 MG TAB PO PRN (22:30)
[2024-04-06 23:00] VITALS: BP 118/76; PULSE 84; RESP 18; TEMP 98.6; O2SAT 99
[2024-04-06] MEDS: IBUPROFEN 600 MG TAB PO PRN (23:42)
[2024-04-07 03:00] VITALS: BP 115/66; PULSE 75; RESP 16; TEMP 97.9; O2SAT 97
--- NOTE | 2024-04-07 03:13 | DVHPN2 ---
Progress Note Date Seen: Apr 07, 2024 Subjective PPD#1 s/p doing well NO acute complaints. Lochia minimal. Pain controlled. vital signs Vital Sign Date Time Temp Pulse Resp B/P (MAP) Pulse Ox O2 Delivery O2 Flow Rate FiO2 04/06/24 23:00 Room Air 04/06/24 23:00 98.6 84 18 118/76 (90) 99 98.6 Total Intake and Output 04/06/24 04/06/24 04/07/24 15:00 23:00 07:00 Output Total 1400 ml Balance -1400 ml medications Current Medications Medications Dose Ordered Sig/Steven Route Start Time Stop Time Status Last Admin Dose Admin Lactated Ringer's 1,000 ml @ 125 mls/hr Q8H IV 04/06/24 10:45 04/06/24 11:38 125 MLS/HR Witch Vania 1 pad PRN PRN TOP 04/06/24 10:45 04/06/24 11:47 1 PAD Sodium Lauryl Sulfate 240 ml PRN PRN TOP 04/06/24 10:45 04/06/24 11:47 240 ML Benzocaine 1 applic PRN PRN TOP 04/06/24 10:45 04/06/24 11:47 1 APPLIC Butorphanol Tartrate 1 mg Q4HPRN PRN IV 04/06/24 10:45 Butorphanol Tartrate 2 mg Q4HPRN PRN IV 04/06/24 10:45 Lidocaine HCl 20 ml ONCE PRN IJ 04/06/24 10:45 Oxytocin 1,000 ml @ 6 ml/hr Q24H IV 04/06/24 10:45 04/06/24 17:14 6 ML/HR Ibuprofen 600 mg Q6HP PRN PO 04/06/24 22:30 04/06/24 23:42 600 MG Acetaminophen 650 mg Q4HP PRN PO 04/06/24 22:30 Ondansetron HCl 4 mg Q4HPRN PRN PO 04/06/24 22:30 Docusate Sodium 200 mg HS PO 04/07/24 22:00 laboratory and microbiology Laboratory Tests 04/06/24 11:00 04/06/24 10:45 Test 04/06/24 11:00 Range/Units Serum Glucose 75 74-106 mg/dL Objective O: AFVSS Chest: heart and lung sounds normal. Abd soft, non-tender, fundus firm, BS, no rebound or guarding, Ext Neg Homans, Non-tender, edema Lochia - minimal Labs Pending Assessment/Plan PPD#1 s/p Term , doing well Mild Anemia Plan: Continue supportive care D/C planning after 24h post delivery Plan discussed with: Patient TODDPHU Apr 07, 2024 03:13
[2024-04-07 04:17] LABS: Basophils # (auto) 0.1 10 ^3/uL (0-0.2); Basophils % (auto) 0.6 % (0.0-2.0); Eosinophils # (auto) 0.3 10 ^3/uL (0-0.8); Hematocrit 26.9 % (36.0-46.0); Hemoglobin 8.8 g/dL (12.2-16.2); Lymphocytes # (auto) 1.9 10 ^3/uL (0.4-5.4); Lymphocytes % (auto) 14.3 % (10.0-50.0); Mean Corpuscular Hemoglobin 29.7 pg (28.0-32.0); Mean Corpuscular Hgb Conc. 32.8 g/dL (32.0-36.0); Mean Corpuscular Volume 90.6 fL (80.0-100.0); Monocytes # (auto) 1.5 10 ^3/uL (0-1.3); Monocytes % (auto) 11.6 % (0.0-12.0); Neutrophils # (auto) 9.4 10 ^3/uL (1.6-8.6); Neutrophils % (auto) 71.5 % (37.0-80.0); Nucleated Red Blood Cells % 0.1 %; Platelet Count (auto) 253 10^3/uL (140-450); Red Blood Cells 2.97 10^6/uL (4.0-5.20); Red Cell Distribution Width 13.4 % (11.8-14.3); White Blood Cell 13.1 10^3/uL (4.4-10.8)
[2024-04-07 06:06] LABS: RPR Non Reactive (Non Reactive)
[2024-04-07 07:00] VITALS: BP 98/53; PULSE 77; RESP 15; TEMP 98.2; O2SAT 98
[2024-04-07 11:00] VITALS: BP 116/69; PULSE 78; RESP 20; TEMP 98.3; O2SAT 99
[2024-04-07 15:00] VITALS: BP 99/61; PULSE 76; RESP 20; TEMP 98.1; O2SAT 97
[2024-04-07 19:00] VITALS: BP 111/71; PULSE 82; RESP 15; TEMP 98.1; O2SAT 98
[2024-04-07] MEDS ORDERED: IBU600T PO (20:29)
[2024-04-07] MEDS ORDERED: FERRCAP9 PO (20:29)
[2024-04-07] MEDS ORDERED: DOCU-265 PO (20:29)
[2024-04-07] MEDS ORDERED: PREN-96 PO (20:29)
[2024-04-07 21:23] VITALS: BP_DIAS 0
[2024-04-07] MEDS ORDERED: DOCUSATE SOD 100 MG CAP PO SCH (22:00)
--- NOTE | 2024-04-07 22:06 | DVHDS2 ---
Obstetrics Discharge Summary Obstetrics Discharge Summary Date of Admission: Apr 06, 2024 Date of Discharge: Apr 07, 2024 Reason For Admission: Onset of Labor Procedures: NST Intrapartum Procedures: Spontaneous vaginal deliv Procedures: Hct/date: (04/07/24), Hgb/date: (04/07/24) Operative Complicat: None Discharge Diagnosis: Term -Delivered Discharge Information: Activity (as tolerated, no heavy lifting and nothing in the vagina for 6 weeks), Diet (Routine), Medications (Rx sent), Instructions (Routine), Discharge to (Home), Accompanied by (partner), Discarge date (04/07/24) ANGELINE KAUR CNM Apr 07, 2024 22:06
== END 2024-04-07 21:23 | disposition home or self-care (01) | DRG 560 ==
LOC: LDRP 10:03 → OBSVTOIN 10:45 → LDRP 11:52
PROVIDERS: ADMIT Obstetrics & Gynecology; ATTEND Obstetrics & Gynecology
PROC: 10E0XZZ Delivery of Products of Conception, External Approach (ICD-10-PCS; principal; 2024-04-06)
PROC: 3E0R3BZ Introduction of Anesthetic Agent into Spinal Canal, Percutaneous Approach (ICD-10-PCS; 2024-04-06)
PROC: 00HU33Z Insertion of Infusion Device into Spinal Canal, Percutaneous Approach (ICD-10-PCS; 2024-04-06)
DX: O77.0 Labor and delivery complicated by meconium in amniotic fluid (principal); Z37.0 Single live birth; O90.81 Anemia of the puerperium; Z3A.38 38 weeks gestation of pregnancy
CPT/HCPCS: 36415; 59025; 59409; 62282; 80053; 80307; 81001; 81002; 85025; 85610; 85730; 86592; 86780; 86803; 86850; 86900; 86901; 94760; 94762; 96360; 96361; 96366; G0378; J2590